=== PATIENT | female | born 1935 | race Caucasian/White ===

== ENCOUNTER 2017-07-18 09:20 | Emergency (ER) | payer MEDICARE, OTHER ==
[2017-07-18] MEDS: IBUPROFEN 200 MG TAB PO (09:47)
== END 2017-07-18 10:33 | disposition home or self-care (01) ==
LOC: FTE 09:20
DX: S60.221A Contusion of right hand, initial encounter (principal); I10 Essential (primary) hypertension; W18.39XA Other fall on same level, initial encounter; Y92.9 Unspecified place or not applicable; Z85.3 Personal history of malignant neoplasm of breast
CPT/HCPCS: 73130; 73130-RT; 99283-25